=== PATIENT | male | born 1960 | race Caucasian/White ===

== ENCOUNTER → 2016-12-20 | Outpatient (CLI) | payer BC ==
--- NOTE | 2016-12-20 08:34 | US ---
EXAMINATION TYPE: US abdomen complete DATE OF EXAM: 12/20/2016 COMPARISON: NONE CLINICAL HISTORY: R10.12 LUQ PAIN. EXAM MEASUREMENTS: Liver Length: 23.0 cm Gallbladder Wall: 0.2 cm CBD: 0.3 cm Spleen: 14.2 cm Right Kidney: 13.3 x 6.7 x 5.8 cm Left Kidney: 13.3 x 7.2 x 5.8 cm Morbidly obese patient, technically difficult study. Pancreas: Obscured by bowel gas Liver: Increased attenuation, decreased visualization of vessels, fatty infiltrate, hepatomegaly Gallbladder: wnl Evidence for sonographic Kaur's sign: no CBD: limited visualization Spleen: measures large Right Kidney: measures large Left Kidney: measures large, 2 mm echogenic foci possible stone Upper IVC: wnl Abd Aorta: only able to visualize mid portions due to overlying bowel and obesity IMPRESSION: 1. Hepatosplenomegaly with increased pattern to the liver can be seen with fatty infiltration, hepato cellular disease, or hepatitis. 2. Nonobstructing left renal calculus.
== END | disposition home or self-care (01) ==
LOC: RADUSMAIN 07:08
PROVIDERS: ATTEND Nurse Practitioner Primary Care
DX: R16.2 Hepatomegaly with splenomegaly, not elsewhere classified (principal); N20.0 Calculus of kidney
CPT/HCPCS: 76700

== ENCOUNTER → 2020-06-18 | Outpatient (CLI) | payer BC | END | disposition home or self-care (01) | LOC: LABPAT 14:03 | PROVIDERS: ATTEND Orthopaedic Surgery | DX: Z01.812 Encounter for preprocedural laboratory examination (principal); Z01.818 Encounter for other preprocedural examination; M16.12 Unilateral primary osteoarthritis, left hip | CPT/HCPCS: 87070 ==

== ENCOUNTER 2020-06-26 06:10 | Observation (INO) | payer BC ==
[2020-06-20 13:18] VITALS: BMI 44.6
--- NOTE | 2020-06-25 10:14 | HP ---
HISTORY AND PHYSICAL CHIEF COMPLAINT: Left hip pain. HISTORY OF PRESENT ILLNESS: The patient is a 59-year-old male who presents with progressive left hip pain secondary to osteoarthrosis worsening over the past year. He notes groin pain with walking and stairs. He notes he has been limping. He has been taking ibuprofen with partial relief. He has a history of a right total hip arthroplasty in 2013. PAST MEDICAL HISTORY: Significant for asthma, type 2 diabetes, arthritis, gastroesophageal reflux disease, hypogonadism, sleep apnea. PAST SURGICAL HISTORY: Significant for right total hip arthroplasty, sinus surgery, and hernia repair. CURRENT MEDICATIONS: 1. Albuterol. 2. Prilosec. 3. Testosterone. 4. Xanax. 5. Duexis. ALLERGIES: He denies drug allergies. FAMILY HISTORY: Significant for heart disease and cancer. SOCIAL HISTORY: Significant for previous tobacco use; however, he quit in 1994. REVIEW OF SYSTEMS: Sixteen-point review of systems otherwise reviewed and is noncontributory. PHYSICAL EXAMINATION: On examination, the patient is approximately 5 feet 11 inches, 320 pounds of endomorphic habitus. HEENT exam is nonfocal. Neck is supple. On examination of his left hip, flexion is 60 degrees, external rotation with hip flex 40 degrees, internal rotation -25 degrees with pain. Clinically, he has got 1 cm shortening of the left lower extremity compared to the right. His distal neurovascular exam appears intact in the left lower extremity. X-rays of the left hip obtained in the office show severe osteoarthrosis with bone-on- bone changes and subchondral sclerosis. IMPRESSION: 1. Left hip severe osteoarthrosis-symptomatic. 2. Increased body mass index. 3. Non-insulin dependent diabetes. RECOMMENDATIONS: I talked to the patient at length regarding his condition along with treatment options. At this point, he is quite symptomatic and opts to proceed with surgery. We will plan to proceed with left total hip arthroplasty utilizing a lateral approach. We will institute DVT prophylaxis postoperatively. The risks and benefits were discussed at length in layman's terms. MMODL / IJN: [id number] /
[~2020-06-26 06:10] MED LIST: ACETAMINOPHEN TAB 500 MG TAB PO PRN; DEXAMETHASONE SOD PHOSPHATE 4 MG/ML 1 ML VIAL IV ONE; LIDOCAINE 1% (10MG/ML) FOR IV START INTRADERMA PRN; MELOXICAM 7.5 MG TAB PO PRN; ONDANSETRON 4 MG/2 ML VIAL IVP ONE; TRANEXAMIC ACID 1,000 MG in SODIUM CHLORIDE 0.9% 100 ML IVPB PRN; ceFAZolin 3 GM in SODIUM CHLORIDE 0.9% 100 ML IVPB PRN
[2020-06-26] MEDS: LACTATED RINGERS 1,000 ML IV SCH ×2 (07:11→16:02)
[2020-06-26 07:16] LABS: Glucose,Whole Blood 117 mg/dL (75-99)
[2020-06-26] MEDS ORDERED: MIDAZOLAM 2 MG/2 ML VIAL ONE (07:58)
[2020-06-26] MEDS ORDERED: fentaNYL (PF) 50 MCG/ML 2 ML AMP ONE (07:58)
[2020-06-26] MEDS ORDERED: SODIUM CHLORIDE 0.9% 100 ML BAG ONE (07:58)
[2020-06-26] MEDS ORDERED: KETAMINE 10 MG/ML 20 ML VIAL ONE (07:58)
[2020-06-26] MEDS ORDERED: PHENYLEPHRINE-0.9% NACL SYG 1,000 MCG/10 ML SYRINGE ONE (07:58)
[2020-06-26] MEDS ORDERED: PROPOFOL 10 MG/ML 20 ML VIAL IV ONE (07:58)
[2020-06-26] MEDS ORDERED: diphenhydrAMINE 50 MG/ML 1 ML VIAL ONE (07:58)
[2020-06-26] MEDS ORDERED: GLYCOPYRROLATE 0.2 MG/ML 2 ML VIAL ONE (07:58)
[2020-06-26] MEDS ORDERED: TRANEXAMIC ACID 1,000 MG/10 ML VIAL ONE (07:58)
[2020-06-26] MEDS ORDERED: ceFAZolin 3,000 MG in SODIUM CHLORIDE 0.9% IRRIGATIO 3,000 ML IRRIGATION ONE (08:34)
[2020-06-26] MEDS ORDERED: LACTATED RINGERS 1,000 ML IV ONE (09:10)
[2020-06-26] MEDS ORDERED: ONDANSETRON 4 MG/2 ML VIAL IVP PRN (10:10)
[2020-06-26] MEDS ORDERED: NALOXONE 0.4 MG/ML 1 ML VIAL IV PRN (10:10)
[2020-06-26] MEDS ORDERED: HYDROcodone/APAP 7.5-325MG 1 EACH TAB PO PRN (10:10)
[2020-06-26] MEDS ORDERED: HYDROmorphone 0.5 MG/0.5 ML SYRINGE IVP PRN (10:10)
[2020-06-26] MEDS ORDERED: ACETAMINOPHEN TAB 325 MG TAB PO PRN (10:10)
[2020-06-26] MEDS ORDERED: MAGNESIUM HYDROXIDE 2,400 MG/10 ML CUP PO PRN (10:10)
--- NOTE | 2020-06-26 10:21 | P.OP ---
Date of Procedure: 06/26/20 Preoperative Diagnosis: Left hip severe osteoarthrosis Postoperative Diagnosis: Same Procedure(s) Performed: Left total hip arthroplastylateral approachpress-fit Implants: Depuy Corail Anesthesia: spinal Surgeon: Palmer Lewis Skating Rink Manager #1: Ramon Berry Estimated Blood Loss (ml): 150 Pathology: other (Femoral head) Condition: stable Disposition: PACU Indications for Procedure: The patient is a 59-year-old male who presents with progressive left hip pain secondary to osteoarthrosis despite conservative measures. A discussion of the risks and benefits of operative intervention versus continued conservative measures was made with the patient. He opted to proceed with surgery. Operative risks to include infection, neurovascular injury, development of blood clots, possible component loosening, possible component failure, possible fracture need for subsequent procedures was discussed. Informed consent was obtained. Operative Findings: As below Description of Procedure: The patient was brought to the operating room, and after induction of spinal anesthesia was placed in a lateral decubitus position. The bony prominences were appropriately padded. The pelvis was stable perpendicular to the floor with a pegboard. The left lower extremity was prepped and draped in normal fashion. A 12 cm incision was then made centered over the greater trochanter extending superiorly to level the ASIS and distally in line with the femoral shaft. The skin and subcutaneous tissues were divided sharply. Electrocautery was used for hemostasis. The fascia johan and gluteus scott fascia was split in line with the skin incision. The muscle fibers were bluntly dissected proximally. A self-retaining retractor was placed. The anterior and posterior margins of the gluteus medius muscles identified and the anterior two thirds was detached from the greater trochanter with electrocautery. The gluteus minimus tendon was identified and detached in a similar fashion. A wide capsulotomy was performed. The femoral neck fracture was identified in the lower neck cut was made approximately 1 1/2 cm above the level of the lesser trochanter with a sagittal saw at a 45 the shaft. The head was then extracted with a corkscrew. Attention was then paid towards preparing the acetabular. Anterior and posterior retractors were placed. The remaining capsular labral tissues debrided sharply clearly defining the acetabular margins. Began reaming with a 53 mm reamer taking care to initially medialize, then reaming at 45 of abduction and 20 of anteversion. Sequential reaming is performed up to 57 mm. This was down to bleeding bony surface. A trial 58 mm acetabular shell was inserted at 45 of abduction and 20 of anteversion. This was fully seated. There was good rim fit and stability. A neutral polyethylene liner was then impacted. Care taken to avoid any soft tissue interposition. Attention was then paid towards preparing the proximal femur. A box chisel was used to open the metaphyseal region. A canal finder was used to find the femoral canal. Sequential broaching was performed up to a size 12. This is placed in 15 of anteversion with the leg perpendicular floor judging off the trans-epicondylar axis. There is good rotational stability. A calcar mill was used to fashion the medial calcar. A trial TRUDY neck along with a 36 mm + 1.5 trial head was placed. The hip was gently reduced. It was taken through range of motion. I felt to be stable in flexion and extension with internal and external rotation. I felt there was adequate methodist of soft tissue tension. The hip was gently dislocated. The trial components removed. Pulsatile lavage was utilized. The final size 12 TRUDY collared femoral stem was inserted again with the leg perpendicular to the floor in 15 of anteversion. Again there was good rotational stability. A 36 mm + 1.5 cobalt chrome femoral head was gently impacted. The hip was gently reduced. Again it was taken through motion and felt to be stable in flexion and extension with internal and external rotation. Pulsatile lavage was again utilized. With the leg in abduction the gluteus minimus and medius tendons reattached to the greater trochanter with #2 Ethibond suture. There was minimal drainage therefore a deep drain was not placed. The fascia johan and gluteus scott fascia was closed with #2 Ethibond suture. The subcutaneous tissues were reapproximated interrupted 2-0 Vicryl sutures. The skin was reapproximated with 3-0 subcuticular strata fix suture. Skin tape and adhesive was applied. A sterile dressing was applied. The patient was awoken from sedation and transferred to recovery room in good condition. Blood loss was estimated 150 mL. No complications were incurred. Sponge and needle counts were correct in the case. Brian BOYD assisted during the major composes case to include exposure, implantation, and closure.
--- NOTE | 2020-06-26 10:35 | XR ---
EXAMINATION TYPE: XR Hip Limited LT DATE OF EXAM: 06/26/2020 COMPARISON: Outside radiograph 05/28/2020 HISTORY: 59-year-old male status post hip surgery, assess surgical alignment TECHNIQUE: Portable AP view FINDINGS: Image shows placement of left hip total arthroplasty. Both the acetabular cup and femoral stem compon ents of the prosthesis appear well seated without periprosthetic fracture. Alignment grossly anatomic . Some scattered soft tissue air relating to recent operation. IMPRESSION: Uncomplicated postoperative appearance left hip total arthroplasty.
[2020-06-26] MEDS: HYDROcodone/APAP 7.5-325MG 1 EACH TAB PO PRN ×2 (13:21→19:19)
[2020-06-26] MEDS ORDERED: ALBUTEROL HFA INHALER INHALATION PRN (14:23)
[2020-06-26] MEDS ORDERED: ALPRAZolam 0.5 MG TAB PO PRN (14:23)
--- NOTE | 2020-06-26 15:32 | CONS ---
CONSULTATION DATE OF SERVICE: 06/26/2020. REASON FOR CONSULTATION: Advice regarding diabetes mellitus, asthma and multiple medical issues requested by Dr. Lewis. HISTORY OF PRESENT ILLNESS: This 59-year-old gentleman with a past medical history of asthma, diabetes mellitus, GERD, hypertension, DJD, history of sleep apnea, history of hernia repair, being followed by in the outpatient setting was admitted after left total hip joint arthroplasty. There is no history of chest pain. No palpitation. No history of headache, loss of consciousness, seizures, nausea, vomiting, diarrhea, fever, rigors, chills at this time. PAST MEDICAL HISTORY: Asthma, diabetes mellitus, GERD, hypertension, DJD, history of sleep apnea, hernia repair. MEDICATIONS: Medications are metformin, testosterone, Prilosec, Cozaar. Motrin, cholecalciferol, albuterol, Xanax. Doses are reviewed. ALLERGIES: None. FAMILY HISTORY: History of cancer in the family. SOCIAL HISTORY: Previous history of smoking. Occasional THC and alcohol. REVIEW OF SYSTEMS: ENT: No diminished hearing or diminished vision. CARDIOVASCULAR SYSTEM: No angina. RESPIRATORY SYSTEM: No cough, hemoptysis. GI: No nausea, vomiting. : No dysuria. NERVOUS SYSTEM: No numbness or weakness. ALLERGY/IMMUNOLOGY: History of asthma. MUSCULOSKELETAL: As mentioned earlier. HEMATOLOGY/ONCOLOGY: No history of anemia. ENDOCRINE: Diabetes mellitus. CONSTITUTIONAL: As mentioned earlier. DERMATOLOGY: Negative. RHEUMATOLOGY: Negative. PSYCHIATRY: As mentioned earlier. PHYSICAL EXAMINATION: The patient is alert and oriented x3. Pulse is 108, blood pressure 118/71, respirations 16, temperature 98.2, pulse ox 94% on room air. HEENT: Conjunctivae normal. NECK: No jugular venous distention. CARDIOVASCULAR: S1, S2 muffled. RESPIRATORY: Breath sounds diminished at the bases. No rhonchi, no crackles. ABDOMEN: Soft, nontender. No mass palpable. LEGS: Status post left hip arthroplasty. SKIN: No ulcer, rash or bleeding. JOINTS: No active deforming arthropathy. LABS: Glucose 117, otherwise, preop lab CBC within normal limits. Chemistry, sodium was ASSESSMENT: 1. Status post left total hip joint arthroplasty. 2. Diabetes mellitus type 2. 3. Hyponatremia, preop, mild. 4. History of asthma. 5. History of gastroesophageal reflux disease. 6. Hypertension. 7. History of degenerative joint disease. 8. History of sleep apnea. 9. History of sciatic, spinal stenosis. 10.History of joint replacement. 11.History of anxiety. 12.Remote history of nicotine dependence. 13.Obesity with body mass index of 45.6. RECOMMENDATION: This 59-year-old gentleman who presented with multiple complex medical issues, we will monitor the patient closely. Continue the current medications. Continue symptomatic treatment. Otherwise I would recommend resume the home medication. Monitor blood sugars closely. I would also recommend a BMP to assess for the sodium. Otherwise, the patient may be asked to follow up with primary physician closely. Thank you Dr. Lewis, for letting us participate in the care of this patient. MMMARCOSL / IJN: [id number] / JAH
[2020-06-26] MEDS: ceFAZolin 3 GM in SODIUM CHLORIDE 0.9% 100 ML IVPB SCH ×2 (16:33→23:54)
[2020-06-26] MEDS: metFORMIN 500 MG TAB PO SCH (19:20)
[2020-06-26] MEDS ORDERED: SENNOSIDES-DOCUSATE SODIUM 1 EACH TAB PO SCH (21:00)
[2020-06-26] MEDS: HYDROmorphone 1 MG/ML 1 ML SYRINGE IVP PRN (22:05)
[2020-06-27] MEDS: HYDROcodone/APAP 7.5-325MG 1 EACH TAB PO PRN ×2 (01:16→07:55)
[2020-06-27] MEDS: HYDROmorphone 1 MG/ML 1 ML SYRINGE IVP PRN (04:33)
[2020-06-27] MEDS ORDERED: PANTOPRAZOLE 40 MG TABLET PO SCH (07:30)
[2020-06-27] MEDS: metFORMIN 500 MG TAB PO SCH (07:55)
[2020-06-27 08:00] VITALS: BP 134/82; PULSE 98; RESP 18; TEMP 98.9
[2020-06-27 08:19] LABS: Basophils % (A) 0 %; Eosinophils # (A) 0.1 k/uL (0-0.7); Eosinophils % (A) 1 %; HCT 45.6 % (39.0-53.0); HGB 15.5 gm/dL (13.0-17.5); Lymphocytes # (A) 2.1 k/uL (1.0-4.8); Lymphocytes % (A) 16 %; MCHC 34.1 g/dL (31.0-37.0); MCV 88.1 fL (80.0-100.0); Mean Platelet Volume 7.3; Monocytes % (A) 8 %; Neutrophils # (A) 9.8 k/uL (1.3-7.7); Neutrophils % (A) 74 %; Platelet Count 197 k/uL (150-450); RBC 5.18 m/uL (4.30-5.90); WBC 13.2 k/uL (3.8-10.6)
[2020-06-27] MEDS ORDERED: FAMOTIDINE 20 MG TAB PO SCH (09:00)
[2020-06-27] MEDS ORDERED: CHOLECALCIFEROL 25 MCG (1000 IU) TABLET PO SCH (09:00)
[2020-06-27] MEDS ORDERED: RIVAROXABAN 10 MG TAB PO SCH (09:00)
--- NOTE | 2020-06-27 10:24 | P.PN ---
Subjective Progress Note Date: 06/27/20 Principal diagnosis: Post-op Day 1 s/p Left Total Hip Arthroplasty Mr. Cerda is a 59 y/o male post-op day 1 from a left total hip arthroplasty performed by Dr. Lewis. Upon entering room, patient alert and oriented and sitting up at 45 degrees talking on phone. Patient mentions he has been up and mobile yesterday as well as this morning. He mentions post-operative pain is minimal and much better than right total hip in 2013. Also states he started Xarelto this morning and is content with taking as he had no issues after using for right total hip in 2013. Objective - Vital Signs Vital signs: Vital Signs Temp 98.9 F 06/27/20 06:53 Pulse 98 06/27/20 06:53 Resp 18 06/27/20 06:53 BP 134/82 06/27/20 06:53 Pulse Ox 97 06/27/20 06:53 Intake & Output 06/26/20 06/27/20 06/27/20 18:59 06:59 18:59 Intake Total 2301 Output Total 700 Balance 1601 Weight 148.3 kg Intake: IV 1801 Intake, IV Titration 500 Amount Lactated Ringers 1,000 ml 400 @ 50 mls/hr IV .Q20H FAINA Rx#:[id number] ceFAZolin 3 gm In Sodium 100 Chloride 0.9% 100 ml @ 200 mls/hr IVPB Q8HR [facility]INA Rx#:[id number] Output: Urine 550 Estimated Blood Loss 150 Other: Voiding Method Toilet # Voids 1 3 - Exam alert and oriented x 4. PERR. Incision site is clean, dry, intact. Covered with dressings and tape. No edema, no swelling in left leg. No bruising/ecchymosis in left leg. - Labs CBC & Chem 7: 06/27/20 07:44 Labs: Abnormal Lab Results - Last 24 Hours (Table) 06/27/20 Range/Units 07:44 WBC 13.2 H (3.8-10.6) k/uL Neutrophils # 9.8 H (1.3-7.7) k/uL Assessment and Plan Assessment: s/p left total hip arthroplasty Plan: 1. Continue [place] as needed for pain 2. Start Xarelto for DVT prevention- take for 28 days 3. Use incentive spirometer as needed 4. Use stool softener as needed 5. Continue ambulation as tolerated. Do not cross legs, do not bend over forward 6. Stable for dc home today Time with Patient: Less than 30
--- NOTE | 2020-06-27 10:28 | P.DS ---
Providers Date of admission: 06/26/2020 Expected date of discharge: 06/27/20 Attending physician: Palmer Lewis Consults: 06/26/20 10:10 Consult Physician Routine Consulting Provider: Alexis Akbar Consult Reason/Comments: medical management Do you want consulting provider notified?: Yes Primary care physician: Jeff Nick MD Hospital Course: Date of admission: 06/26/2020 Date of discharge: 06/27/2020 Admission diagnosis: Status post left total hip arthroplasty Discharge diagnosis: Same Attending physician: Dr. Lewis Surgical procedures: Left total hip arthroplasty Brief history: Patient is a 59-year-old male with a history of progressive primary left hip osteoarthritis. At this point patient has failed conservative treatment measures and has opted to proceed with a elective left total hip arthroplasty. Hospital course: Details of patient's surgery can be found in operative report. Patient tolerated the procedure well and was subsequently transported to orthopedic floor. Patient's orthopeidc and medical care was provided daily. Patient had daily laboratory tests performed for evaluation of overall blood counts. Patient had daily physical therapy to include strengthening range of motion as well as education with walker ambulation. Patient was treated with Xarelto for their postoperative DVT prophylaxis during their inpatient stay. Patient was noted to have a relatively uneventful postoperative course. Patient reported satisfactory pain control with oral pain medications by postoperative day 0. Patient showed satisfactory progress with physical therapy. Patient moved steadily through the program and had no difficulty meeting the goals by postoperative day 1. Given patient's otherwise satisfactory course and having met physical therapy goals, plan is to discharge patient home on postoperative day 1. Discharge condition/disposition: Patient will be discharged home in stable condition. Discharge medications: Instructions are given on resumption of patient's normal daily medications per primary care recommendation, in addition patient will be prescribed [place] 7.5 mg/325 mg, Colace 100 mg, Xarelto 10 mg. Discharge instructions: 1. Wound care and infection precautions, keep incision dry and covered while showering, no lotions, creams, moisturizers. No soaking, tubs, pools, hottubs. Do not scrub over the incision. 2. Weight-bear as tolerated with walker / cane until follow-up. 3. Ice and elevate when necessary. Do not exceed 20 minutes per hour with ice pack. 4. Utilize compression sleeve until seen at first follow up appointment. 5. Visiting nursing care. 6. Home physical therapy. 7. Pain meds and anticoagulants per prescription. 8. Pain medication has potential to cause constipation. Increase oral fluid and fiber intake. Contact primary care provider if you have not had a bowel movement within 48 hours after discharge 9. No anti-inflammatory medication until discussed at first post operative visit, this including Motrin, Aleve, Mobic, Diclofenac. 10. Follow up in office at 2 weeks postop with Brian Berry PA-C 11. Follow up with your primary care doctor 7-10 days after discharge. 12. Contact [facility] with any questions, . Procedures: Left total hip arthroplasty Patient Condition at Discharge: Good Plan - Discharge Summary Discharge Rx Participant: Yes New Discharge Prescriptions: New Docusate [Colace] 100 mg PO DAILY #30 capsule HYDROcodone/APAP 7.5-325MG [[place] 7.5] 1 - 2 each PO Q6HR PRN #42 tab PRN Reason: Pain Rivaroxaban [Xarelto] 10 mg PO DAILY #28 tab No Action Omeprazole [PriLOSEC] 20 mg PO AC-BRKFST Albuterol Inhaler (Mhu) [Ventolin Hfa Inhaler (Mhu)] 2 puff INHALATION Q4HR PRN PRN Reason: asthma ALPRAZolam [Xanax] 0.5 mg PO BID PRN PRN Reason: Anxiety metFORMIN HCL [Glucophage] 500 mg PO BID Ibuprofen [Motrin] 800 mg PO BID Cholecalciferol [Vitamin D3 (25 Mcg = 1000 Iu)] 25 mcg PO DAILY Testosterone Cypionate [Depo-Testosterone] 200 mg IM SA Losartan [Cozaar] 50 mg PO DAILY Discharge Medication List ALPRAZolam [Xanax] 0.5 mg PO BID PRN 02/15/14 [History] Albuterol Inhaler (Mhu) [Ventolin Hfa Inhaler (Mhu)] 2 puff INHALATION Q4HR PRN 02/15/14 [History] Omeprazole [PriLOSEC] 20 mg PO AC-BRKFST 02/15/14 [History] Ibuprofen [Motrin] 800 mg PO BID 06/20/20 [History] metFORMIN HCL [Glucophage] 500 mg PO BID 06/20/20 [History] Cholecalciferol [Vitamin D3 (25 Mcg = 1000 Iu)] 25 mcg PO DAILY 06/22/20 [History] Losartan [Cozaar] 50 mg PO DAILY 06/22/20 [History] Testosterone Cypionate [Depo-Testosterone] 200 mg IM SA 06/22/20 [History] Docusate [Colace] 100 mg PO DAILY #30 capsule 06/27/20 [Rx] HYDROcodone/APAP 7.5-325MG [[place] 7.5] 1 - 2 each PO Q6HR PRN #42 tab 06/27/20 [Rx] Rivaroxaban [Xarelto] 10 mg PO DAILY #28 tab 06/27/20 [Rx] Follow up Appointment(s)/Referral(s): Jeff Nick MD [Primary Care Provider] - 1 Week (Office will call you with your appointment. Thank you.) [facility] - As Needed Ramon Berry PAC [PHYSICIAN BLOCK [facility]WYER] - 07/13/20 2:10 pm Activity/Diet/Wound Care/Special Instructions: Orthopedic Discharge Instructions: 1. Wound care and infection precautions, keep incision dry and covered while showering, no lotions, creams, moisturizers. No soaking, pools, hot tubs. Do not scrub over incision. 2. Weight-bear as tolerated with walker / cane until follow-up. 3. Ice and elevate when necessary. Do not exceed 20 minutes per hour with ice pack. 4. Utilize compression sleeve until seen at first follow up appointment. 5. Pain meds and anticoagulants per prescription. 6. Pain medication has potential to cause constipation. Increase oral fluid and fiber intake. Contact primary care provider if you have not had a bowel movement within 48 hours after discharge. 7. No anti-inflammatory medication until discussed at first post operative visit, this including Motrin, Aleve, Mobic, Diclofenac. 8. Follow up in office at 2 weeks postop with Brian Berry PA-C 9. Follow up with your primary care doctor 7-10 days after discharge. 10. Contact [facility] with any questions, . Discharge Disposition: HOME WITH HOME HEALTH SERVICES
[2020-06-27 10:51] LABS: African American GFR (CKD) 96.4 (60.0-200.0); Calcium 9.6 mg/dL (8.7-10.3); Non-African American GFR(CKD) 83.2 (60.0-200.0); Potassium 4.2 mmol/L (3.5-5.5)
--- NOTE | 2020-06-27 14:43 | P.PN ---
Subjective Progress Note Date: 06/27/20 This is a 59-year-old male who was recently admitted for left total hip joint arthroplasty and is being closely monitored. Does have past medical history of asthma, diabetes mellitus, GERD, hypertension, degenerative joint disease, sleep apnea with CPAP, and history of hernia repair. Patient is up and walking with a walker and was seen and evaluated by physical therapy and will be going home today. Family at the bedside and patient will be having some rehab in the outpatient setting. Incentive spirometer at the bedside instructed the patient to continue using at least 10 times every hour while awake. Patient also instructed to closely monitor blood sugars and keep a diary for primary care follow-up. Review of systems: Constitutional: No reports of fatigue, fever, or chills Cardiovascular: No reports of chest pain or palpitations Respiratory: No reports of shortness of breath or cough GI: No reports of nausea, vomiting, or diarrhea : No reports of dysuria or retention Neurovascular: No reports of weakness or numbness All medications have been reviewed Objective - Vital Signs Vital signs: Vital Signs Temp 98.9 F 06/27/20 06:53 Pulse 98 06/27/20 07:50 Resp 18 06/27/20 07:50 BP 134/82 06/27/20 06:53 Pulse Ox 97 06/27/20 06:53 Intake & Output 06/26/20 06/27/20 06/27/20 18:59 06:59 18:59 Intake Total 2301 Output Total 700 550 Balance 1601 -550 Weight 148.3 kg Intake: IV 1801 Intake, IV Titration 500 Amount Lactated Ringers 1,000 ml 400 @ 50 mls/hr IV .Q20H [facility] Rx#:[id number] ceFAZolin 3 gm In Sodium 100 Chloride 0.9% 100 ml @ 200 mls/hr IVPB Q8HR [facility] Rx#:[id number] Output: Urine 550 550 Estimated Blood Loss 150 Other: Voiding Method Toilet Toilet # Voids 1 3 3 - Exam Gen: This is a 59-year-old male sitting up at the side of the bed awake, alert and oriented 3, well-developed, well-nourished, obese. Temp is 98.9F, pulse is 98, respirations are 18, blood pressure is 134/82, oxygen saturation is 97% on room air. HEENT: Head is atraumatic, normocephalic. Pupils equal, round. Sclerae is anicteric. NECK: Supple. No JVD. No lymphadenopathy. No thyromegaly. LUNGS: Diminished breath sounds bilaterally with no wheezing or rhonchi noted. No intercostal retractions. HEART: S1, S2 are muffled ABDOMEN: Soft. Obese. Bowel sounds are present. No masses. No tenderness. EXTREMITIES: No pedal edema. No calf tenderness. Left surgical dressing of the hip is dry and intact. NEUROLOGICAL: Patient is awake, alert and oriented x3. Cranial nerves 2 through 12 are grossly intact. - Labs CBC & Chem 7: 06/27/20 07:44 06/27/20 07:44 Labs: Abnormal Lab Results - Last 24 Hours (Table) 06/27/20 06/27/20 Range/Units 07:44 07:44 WBC 13.2 H (3.8-10.6) k/uL Neutrophils # 9.8 H (1.3-7.7) k/uL Glucose 146 H (70-110) mg/dL Assessment and Plan Assessment: Status post left total hip joint arthroplasty diabetes mellitus 2 Hyponatremia, preop mild History of asthma history of gastroesophageal reflux disease Hypertension History of degenerative joint disease history of sleep apnea history of sciatic, spinal stenosis history of joint replacement History of anxiety remote history of nicotine dependence Obesity with a body mass index of 45.6 Commendations and discussion: Recommend continue with current medications, management, and symptomatic treatment. Continue with pain management per primary service. Patient was seen and evaluated by PT/OT and patient will be going home with outpatient rehab and follow-up with orthopedic surgeries. Patient also instructed to continue to monitor blood sugars closely and keep a diary of readings for primary care follow-up. Patient has an incentive spirometer at the bedside and instructed to use at least 10 times every hour while awake even in the outpatient setting. Sodium today is 135 with a potassium of 4.2 and current creatinine is 1.0. Patient instructed to follow-up with primary care provider Jeff Nick upon discharge and recommend repeat labs to monitor electrolytes, creatinine, and sodium levels. Will continue to follow during hospitalization. Further recommendations to follow. Patient states he is being discharged today.
== END 2020-06-27 12:29 | disposition home health service (06) ==
LOC: OR 06:10 → 4SSUR 10:05 → OR 06-27 06:30
PROVIDERS: ADMIT Family Medicine; ATTEND Orthopaedic Surgery
DX: M16.12 Unilateral primary osteoarthritis, left hip (principal); Z96.641 Presence of right artificial hip joint; E11.9 Type 2 diabetes mellitus without complications; J45.909 Unspecified asthma, uncomplicated; K21.9 Gastro-esophageal reflux disease without esophagitis; E29.1 Testicular hypofunction; M19.90 Unspecified osteoarthritis, unspecified site; F41.9 Anxiety disorder, unspecified; I10 Essential (primary) hypertension; E87.1 Hypo-osmolality and hyponatremia; M48.00 Spinal stenosis, site unspecified; E66.01 Morbid (severe) obesity due to excess calories; Z68.42 Body mass index [BMI] 45.0-49.9, adult; G47.33 Obstructive sleep apnea (adult) (pediatric); Z99.89 Dependence on other enabling machines and devices; Z79.899 Other long term (current) drug therapy; Z79.890 Hormone replacement therapy; Z87.891 Personal history of nicotine dependence; Z79.1 Long term (current) use of non-steroidal anti-inflammatories (NSAID); Z79.84 Long term (current) use of oral hypoglycemic drugs; Z80.9 Family history of malignant neoplasm, unspecified; Z82.49 Family history of ischemic heart disease and other diseases of the circulatory system
CPT/HCPCS: 27130; 80048; 85025; 88300; 73501; G0378; C1776; J2250; J1200; J1100; J0690 ×2; J2405; J3010; J1170 ×2; J2370; J2704; 86850; 86900; 86901

== ENCOUNTER → 2021-10-11 | Outpatient (CLI) | payer BC ==
--- NOTE | 2021-10-11 10:36 | US ---
EXAMINATION TYPE: US liver DATE OF EXAM: 10/11/2021 COMPARISON: US CLINICAL HISTORY: R74. 01 for Elevation of levels of liver transaminase level. EXAM MEASUREMENTS: Liver Length: 21. cm Gallbladder Wall: 0.2 cm CBD: 0.5 cm Right Kidney: 13.4 x 7.5 x 5.9 cm Morbidly obese patient, technically difficult, limited study. Pancreas: Obscured by bowel gas Liver: unable to well penetrate, severe fatty infiltrate, measures large Gallbladder: wnl Evidence for sonographic Kaur's sign: no CBD: wnl Right Kidney: measures large IMPRESSION: Hepatic steatosis.
== END | disposition home or self-care (01) ==
LOC: LABWHC1 09:28
PROVIDERS: ATTEND Internal Medicine
DX: K76.0 Fatty (change of) liver, not elsewhere classified (principal)
CPT/HCPCS: 76705